=== PATIENT | male | born 1975 | race Caucasian/White ===

== ENCOUNTER 2025-01-11 12:21 | Emergency (ER) | payer SELFPAY | END 2025-01-11 16:30 | disposition home or self-care (01) | LOC: JD.ED 12:21 | DX: J40 Bronchitis, not specified as acute or chronic (principal); M25.531 Pain in right wrist; M25.571 Pain in right ankle and joints of right foot; F17.210 Nicotine dependence, cigarettes, uncomplicated; Z88.2 Allergy status to sulfonamides; Z88.0 Allergy status to penicillin | CPT/HCPCS: 71046; 73110; 94640; 99285; J3535; A9270-GY ==